=== PATIENT | female | born 1985 | race Caucasian/White ===

== ENCOUNTER → 2021-12-04 13:54 | Outpatient (CLI) | payer OTHER, SELFPAY ==
--- NOTE | 2021-12-04 13:58 | DI.US.S_ITS ---
PROCEDURE: US OB >= 14 WEEKS FETUS INDICATIONS: 20 week ANATOMY SCAN OUTSIDE/PRIOR DATING DATA: Last menstrual period (LMP): July 17, 2021. LMP-based estimated date of delivery (LAM): April 23, 2022. First dating scan (date): November 13, 2021. Estimated date of delivery (LAM) from first dating scan: April 22, 2022. TECHNIQUE: Real-time scanning was performed of the fetus, with image documentation and biometric measurements. COMPARISON: [facility], , OB >= 14 WEEKS FETUS, 11/26/2021, 13:41. FINDINGS: General: A single living intrauterine gestation is present. Presentation: Variable. Placenta: Placental position is anterior , without previa. Amniotic fluid index: 16 cm, normal range is 5-24 cm. Single deepest vertical pocket is 4.6 cm. heart rate: 139 beats per minute. Maternal cervical canal: 4.3 cm long. Normal lower limit is 2.5 cm. biometrics: Biparietal diameter: 5 cm Head circumference: 18.3 cm Abdominal circumference: 15.4 cm Femur length: 3.4 cm Clinically estimated gestational age: 20 weeks, 1 day Composite gestational age from present scan: 20 weeks, 5 days Estimated weight and percentile: 363 g; 70 Anatomic survey: Neuro: Ventricles are non-dilated at less than 10 mm. Cisterna magna is normal at 3-11 mm. Cerebellum is normal in size and morphology. Nuchal skin fold: Normal at less than 6 mm between 14-21 weeks gestational age. Face: Nose and lips, facial profile are normal. Spine: No evidence for spina bifida. Heart: 4-chambered heart is present, with normal ventricular outflow tracts. Diaphragm: Diaphragm is intact. Stomach: Left-sided stomach is present. Kidneys: No hydronephrosis. Normal is less than 5 mm in 2nd trimester, less than 7 mm in 3rd trimester. Cord: Cord insertion not well seen. Bladder: Normal in size. Extremities: All 4 extremities identified. IMPRESSION: Live single intrauterine gestation as detailed above. We strive to produce accurate, complete, and clear reports of imaging services. To assist us in improving patient care, this report was composed using standard report templates and voice recognition software. Therefore, it may contain abnormal punctuation, insertions and/or omissions. Occasional wrong-word or sound-alike substitutions may occur. Though we review the report and make efforts to correct it, we do recommend that the report be read carefully in proper context to recognize any text inaccuracies. Dictated by: Won Ernst M.D. on 12/04/2021 at 15:30 Approved by: Won Ernst M.D. on 12/04/2021 at 15:32
== END ==
PROVIDERS: Referring Provider Obstetrics & Gynecology; Visit Provider Obstetrics & Gynecology
DX: Z34.82 Encounter for supervision of other normal pregnancy, second trimester (principal); Z3A.20 20 weeks gestation of pregnancy
CPT/HCPCS: 76811

== ENCOUNTER → 2022-01-14 11:07 | Outpatient (CLI) | payer OTHER, SELFPAY ==
[2022-01-14 14:01] LABS: Hematocrit 35.8 % (36-46)
[2022-01-14 14:12] LABS: GTT (PREG) 1 Hour PP 50gm Dose 129 mg/dL (76-139)
== END ==
PROVIDERS: Referring Provider Obstetrics & Gynecology; Visit Provider Obstetrics & Gynecology
DX: Z34.82 Encounter for supervision of other normal pregnancy, second trimester (principal); Z3A.25 25 weeks gestation of pregnancy
CPT/HCPCS: 36415; 82950; 85014; 85018; 86850; 86900; 86901

== ENCOUNTER 2022-03-04 16:36 | Outpatient (CLI) | payer OTHER, SELFPAY ==
[2022-03-04 17:28] VITALS: BP 117/69; PULSE 79; RESP 20; TEMP 36.3
== END 2022-03-04 17:20 | disposition home or self-care (01) ==
LOC: OB 03-05 08:05
PROVIDERS: Referring Provider Obstetrics & Gynecology; Visit Provider Obstetrics & Gynecology
DX: O47.03 False labor before 37 completed weeks of gestation, third trimester (principal); Z3A.32 32 weeks gestation of pregnancy
CPT/HCPCS: 59025; G0378; G0379

== ENCOUNTER → 2022-04-02 12:16 | Outpatient (CLI) | payer OTHER, SELFPAY ==
[2022-04-03 09:58] LABS: Strep Grp B PCR NEG for Grp B Strep
== END ==
PROVIDERS: Visit Provider Obstetrics & Gynecology
DX: Z34.83 Encounter for supervision of other normal pregnancy, third trimester (principal); Z3A.37 37 weeks gestation of pregnancy
CPT/HCPCS: 87653

== ENCOUNTER 2022-04-02 15:05 | Outpatient (CLI) | payer OTHER, SELFPAY ==
[2022-04-02 16:57] VITALS: BP 96/51; PULSE 88; RESP 20; TEMP 36.7
--- NOTE | 2022-04-02 18:03 | P.TNLD_ITS ---
Visit Information Visit Information Date of evaluation: 04/02/22 Primary OB Provider: Piedad Dejesus Reason for Evaluation: Yes non-stress test non-stress test reason: other (h/o stillbirth, Covid in ) Vital Signs Vital Signs: Vital Signs - 8 hr 04/02/22 16:57 Temperature 98.1 F Pulse Rate 88 Respiratory Rate 20 Blood Pressure 96/51 L PFSH Medical History (Updated 02/12/22 @ 08:30 by Piedad Dejesus MD) Advanced maternal age (AMA) in Anxiety (~10/11/20) Chicken pox Heavy menstrual period IBS (irritable bowel syndrome) (~1987) Migraines Painful menstrual periods Surgical History (Updated 11/25/21 @ 20:39 by Katarina Douglass) [place] teeth extracted (~2005) Family History (Updated 11/25/21 @ 20:42 by Katarina Douglass) Mother Miscarriage Migraine Father Prostate cancer Hyperlipidemia Hypertension TIA (transient ischemic attack) Grandmother Parkinson's disease Grandfather Lung cancer Grandmother Cancer Grandfather S/P triple vessel bypass Hyperlipidemia Brother Hypertension Hyperlipidemia Brother Suicide Social History marital status: number of children: 1 household members: spouse, family and children lives independently: Yes caregiver/support person: No housing: house pets and animals: No education level: master's degree occupational status: unemployed current occupational exposures/hazards: No 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 seatbelt use: always do you feel safe at home: Yes Smoking Status: Never smoker second hand exposure: No alcohol intake: never substance use type: does not use during the past year weight has: remained stable well-balanced diet: daily or most days daily servings fruits/ve-4 caffeine: No Type(s) of exercise: walking and normal ROM and activity frequency: daily Exam Vital Signs (past 8 hours): - 04/02/22 16:57 Temperature 98.1 F Pulse Rate 88 Respiratory Rate 20 Blood Pressure 96/51 L Evaluation Evaluation Baseline heart rate: 130 Variability: Moderate (11-25) monitor accelerations: Present Monitor Decelerations: Absent Contraction Frequency (minutes): 10 Uterine Contraction Intensity: Mild Diagnosis, Plan/Disposition Plan/Disposition Plan: Assessment: 37 wks gestation h/o stillbirth Reactive NST Plan: S/S labor reviewed OB Disposition: home
== END 2022-04-02 16:00 | disposition home or self-care (01) ==
LOC: LABOR 15:10 → OB 04-03 10:35
PROVIDERS: Referring Provider Obstetrics & Gynecology; Visit Provider Obstetrics & Gynecology
DX: O09.293 Supervision of pregnancy with other poor reproductive or obstetric history, third trimester (principal); Z3A.37 37 weeks gestation of pregnancy; Z86.16 Personal history of COVID-19
CPT/HCPCS: 59025; 87653; G0378; G0379

== ENCOUNTER 2022-04-07 09:20 | Inpatient (IN) | payer OTHER, SELFPAY ==
[2022-04-07 10:36] VITALS: BP 116/74
--- NOTE | 2022-04-07 11:10 | PM.OBHP.1 ---
OB HPI Date/Time Date of admission: 04/07/22 Date Patient Seen: 04/07/22 Time Patient Seen: 11:11 History of Present Condition Chief complaint: Active labor : 3 Para: 1 Estimated Date of Delivery: 04/23/22 Estimated Gestational Age (weeks): 37 Narrative: Megan Mitchell is a 36 year old female admitted in active labor History of Present care: good care, initiated at week # (12), number of visits (11) and pounds weight gain (41) Dating criteria: LMP confirmed by 1st trimester US Ultrasounds: normal mid trimester US Obstetrical complications: none Medical complications: none Preadmission Labs Blood type: O (+) positive -: Antibody screen: negative, GBS status: negative, HBsAG: negative, HIV: negative and RPR/VDLR: negative -: Chlamydia screen: not detected and Gonorrhea screen: not detected -: Rubella: immune and Varicella: immune HCAB: negative Cell-free DNA: Normal female 1 hr GTT: 129 Prior (ies) History: 05/25/19 39 13 7 lb 8 oz [place] tongue/lip tie,mstitis chorioamnionitis/endometrKillian 01/08/21 20.5 7.549 oz still [place], [place] oligohydramnios intrauterine Evaluation Evaluation Baseline heart rate: 130 Variability: Moderate (11-25) monitor accelerations: Present Monitor Decelerations: Absent Contraction Frequency (minutes): 4 Uterine Contraction Intensity: Strong/Firm Category of Tracing: Reactive Status: Category l Dilation (cm): 6 Effacement (%): 60 station: -2 Position of cervix: mid Consistency: soft PFSH Medical History (Updated 02/12/22 @ 08:30 by Piedad Dejesus MD) Advanced maternal age (AMA) in Anxiety (~10/11/20) Chicken pox Heavy menstrual period IBS (irritable bowel syndrome) (~1987) Migraines Painful menstrual periods Surgical History (Updated 11/25/21 @ 20:39 by Katarina Douglass) [place] teeth extracted (~2005) Family History (Updated 11/25/21 @ 20:42 by Katarina Douglass) Mother Miscarriage Migraine Father Prostate cancer Hyperlipidemia Hypertension TIA (transient ischemic attack) Grandmother Parkinson's disease Grandfather Lung cancer Grandmother Cancer Grandfather S/P triple vessel bypass Hyperlipidemia Brother Hypertension Hyperlipidemia Brother Suicide Social History marital status: number of children: 1 household members: spouse, family and children lives independently: Yes caregiver/support person: No housing: house pets and animals: No education level: master's degree occupational status: unemployed current occupational exposures/hazards: No 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 seatbelt use: always do you feel safe at home: Yes Smoking Status: Never smoker second hand exposure: No alcohol intake: never substance use type: does not use during the past year weight has: remained stable well-balanced diet: daily or most days daily servings fruits/ve-4 caffeine: No Type(s) of exercise: walking and normal ROM and activity frequency: daily Meds Home Medications and Allergies Home Medications Medication Instructions Recorded Confirmed Type docusate sodium 100 mg capsule 100 mg PO BID 11/08/21 04/07/22 History (Colace) doxylamine succinate 25 mg tablet 25 mg PO BEDTIME PRN Sleep 11/08/21 04/07/22 History (Unisom (doxylamine)) prenat.vits,mark anthony,[id number] 1 tab PO DAILY 11/08/21 04/07/22 History fluoxetine 20 mg capsule (Prozac) 20 mg PO DAILY #30 caps 03/06/22 04/07/22 Rx Allergies Allergy/AdvReac Type Severity Reaction Status Date / Time No Known Drug Allergies Allergy Verified 04/02/22 11:07 Review of Systems Review of Systems Narrative: Patient began contractions approximately 6:30 a.m.. No leakage of fluid. Good movement yesterday. No headaches, scotomata, epigastric pain. OB Exam Narrative Exam Narrative: Blood pressure 115/83, pulse of 80, temperature 36.3? HEENT exam within normal limits. Lungs are clear to auscultation percussion. Heart is regular rate and rhythm no S3-S4 murmurs. Abdomen is gravid. Fetus is vertex. Extremities without edema and nontender. Assessment and Plan Assessment and Plan Assessment and Plan narrative: 36-year-old 3 para 1 early demise 1, at 37 week 5 days in active labor. Patient received an epidural catheter for pain control. Anticipate spontaneous vaginal delivery. Time Spent with Patient Total time spent with greater than 50% in coordination of care (as documented) at patient's floor/unit and/or counseling patient:: less than 15 minutes
[2022-04-07] MEDS: LACTATED RINGERS 1,000 ML 100 ML IV (11:30)
[2022-04-07 11:47] LABS: Add Manual Diff / Slide Review NO; Basophils Absolute Auto 0 /uL (0-100); Basophils Percent Auto 0.3 % (0-2); Eosinophils Absolute Auto 100 /uL (0-450); Hematocrit 36.6 % (36-46); Hemoglobin 12.6 g/dL (12.0-16.0); Lymphocytes Absolute Auto 2400 /uL (1100-4500); Lymphocytes Percent Auto 18.2 % (25-40); Mean Corpuscular HGB Conc 34.4 % (30-36); Mean Corpuscular Hemoglobin 32.4 PG (26-34); Mean Corpuscular Volume 94.2 fL (80-100); Monocytes Absolute Auto 700 /uL (0-900); Monocytes Percent Auto 5.6 % (3-14); Neutrophils Absolute Auto 9700 /uL (1500-7000); Neutrophils Percent Auto 74.9 % (50-75); Platelet Count 184 X10^3/uL (150-400); Red Blood Cell Count 3.88 X10^6/uL (4.0-5.2); Red Cell Distribution Width 13.7 % (11.6-14.8)
[2022-04-07] MEDS: CALCIUM CARBONATE 500 MG TAB 1000 MG PO (11:54)
[2022-04-07 12:55] LABS: COVID19 -Nasal RAPID Negative (Negative)
--- NOTE | 2022-04-07 15:15 | PM.OBPRVD ---
Events: Meconium Stained Fluid (Moderate) Labor & Delivery Delivery date: 04/07/22 Cervical ripening method: none Induction method: none Delivery monitor: external FHT and external uterine Route of delivery: Episiotomy description: None L&D Laceration Description: Perineal - 2nd Degree, Vaginal - 2nd Degree and Superficial (Right periurethral) Delivery repair: vicryl and chromic Estimated blood loss (mL): 250 Anesthesia Type: Epidural Complications: None Narrative: Patient complete and pushed with 1 contraction. At 2:48 p.m., a live female infant delivered spontaneously over an intact perineum. No nuchal cord. The remainder of the body delivered without difficulty. The cord was double clamped and cut. The was handed to waiting RT and Peds. Cord bloods were obtained. Pitocin was given in the IV fluids. The placenta delivered intact with a three-vessel cord at 2:51 p.m.. The fundus was massaged to firm. A superficial right periurethral laceration was repaired with 4-0 chromic in the usual fashion. Hemostasis was achieved. A second-degree vaginal/perineal laceration was repaired with 2 0 Vicryl and 3-0 chromic in the usual fashion. Hemostasis was achieved. Estimated blood loss 250 cc. Apgars 8 at 1 minute and 9 at 5 minutes. Epidural analgesia. . Mom and infant stable to recovery. [place] Baby 1: gender: Female Presentation: vertex Position: Right Occiput Anterior Placenta delivery description: Spontaneous Cord Vessel Description: 3 Vessels and Clamped/Cut score (1 min): 8 score (5 min): 9 weight: 6 lb 11 oz Plan for aftercare: Routine care
[2022-04-07] MEDS: IBUPROFEN 600 MG TABLET PO (20:56)
[2022-04-08] MEDS: ACETAMINOPHEN 325 MG TABLET 650 MG PO (08:20)
[2022-04-08] MEDS: DOCUSATE 100 MG CAPSULE PO (08:21)
[2022-04-08] MEDS: PRENATAL VIT,CALC/IRON/FOLIC 1 TABLET 1 TAB PO (08:21)
[2022-04-08] MEDS: IBUPROFEN 600 MG TABLET PO ×2 (08:21→14:45)
[2022-04-08] MEDS: FLUoxetine 20 MG CAPSULE PO (08:28)
--- NOTE | 2022-04-08 10:17 | P.DS_ITS ---
Discharge Providers Provider Date of admission: 04/07/22 09:20 Discharge Date: 04/08/22 Primary care physician: Doctor Brandon MD Consults: 04/07/22 11:28 Consult to Anesthesiology Urgent Comment: Consulting Provider: Anesthesiologist Reason for consultation: Epidural Has provider been notified: Yes 04/08/22 15:13 Consult to Picture Enlarger Routine Comment: Discharge provider: Piedad Dejesus MD Summary Hospital Course Date Patient Seen: 04/08/22 Time Patient Seen: 10:17 Diagnoses: 37-,5/7 weeks gestation Spontaneous vaginal delivery Right superficial periurethral laceration Second-degree vaginal/perineal laceration Moderate meconium-stained amniotic fluid Hospital Course: Patient is a 36-year-old 3 para 2 who presented on April 07, 2022 in active labor. She received an epidural for pain management. She had a spontaneous rupture of membranes with moderate meconium-stained amniotic fluid. She had a spontaneous vaginal delivery without complication. She had a right periurethral tear and a second-degree vaginal/perineal tear that were repaired in the usual fashion. Her course was unremarkable. She is discharged home on day # 1. She has had difficulty sleeping in the period. Hydroxyzine was prescribed for anxiety/insomnia. Peripartum Data Infant Delivery Method: Natural Vaginal Laceration Description: Perineal - 2nd Degree, Vaginal - 2nd Degree and Superficial (Right periurethral) Episiotomy description: None Procedures: Epidural analgesia Spontaneous rupture of membranes Spontaneous vaginal delivery Periurethral and second-degree vaginal/perineal laceration repair complications: none [place] 1: Gender: Female Disposition of : home Status at Discharge Cognitive/behavioral status at discharge: oriented Functional status at discharge: independent ambulation Overall status at discharge: patient is progressing back to baseline Time Spent with Patient Time attestation: Total time spent providing and/or coordinating discharge services: Time spent: Less than 30 minutes Objective Labs Result Diagrams: 04/07/22 10:15 Labs: Laboratory Results - last 24 hr 04/07/22 04/07/22 04/07/22 10:05 10:15 10:15 WBC 13.0 H RBC 3.88 L Hgb 12.6 Hct 36.6 MCV 94.2 MCH 32.4 MCHC 34.4 RDW 13.7 Plt Count 184 Neut % (Auto) 74.9 Lymph % (Auto) 18.2 L Anderson % (Auto) 5.6 Eos % (Auto) 1.0 L Baso % (Auto) 0.3 Neut # (Auto) 9700 H Lymph # (Auto) 2400 Anderson # (Auto) 700 Eos # (Auto) 100 Baso # (Auto) 0 SARS-CoV-2 (PCR) Negative Blood Type O Positive Antibody Screen Negative Exam Vital Signs (past 8 hours): Generally: Patient is sitting up in bed, no acute distress Fundus: Firm at U -2 Extremities: No edema, negative Homans Discharge Plan Discharge Plan Patient Disposition: Home Provider Discharge Comment: Call with fever, chills, or bleeding vaginally more than a pad in an hour Ibuprofen 600 mg every 6 hours as needed for cramping Tylenol 650 mg every 6 hours as needed Discharge orders & Medications Prescriptions: New hydroxyzine HCl 25 mg tablet 25 mg PO BEDTIME PRN (Reason: anxiety and insomnia) Qty: 30 3RF Continued docusate sodium [Colace] 100 mg capsule 100 mg PO BID prenat.vits,mark anthony,[id number]-copri Tablet 1 tab PO DAILY fluoxetine [Prozac] 20 mg capsule 20 mg PO DAILY Qty: 30 11RF Discontinued Unisom (doxylamine) 25 mg tablet 25 mg PO BEDTIME PRN (Reason: Sleep) Follow up/Referrals: Piedad Dejesus MD [Physician] - 6 Weeks Diet/Activity/Treatments Diet: Regular Activity: Nothing in the vagina for 6 weeks Skin/Wound/Dressing Care Report to your healthcare provider any signs of infection, such as:: chills, fever, increased pain and unusual drainage Discharge Data Primary Care Provider: Miscellaneous,Doctor
--- NOTE | 2022-04-08 12:13 | PM.OBPNLAB ---
Date/Time Date Patient Seen: 04/08/22 Time Patient Seen: 11:50 Pain Control Pain control: tolerating well Pelvic Exam Dilation (cm): 4 Effacement (%): 75 station: -2 Amniotic membrane status: Intact Contractions Contractions on admission: none Monitor mode: External Pitocin rate (mU/min): 3 Contraction frequency (min): 3 Contraction duration (min): 1 Contraction pattern: Regular Contraction intensity: Moderate Status status: Category l Heart Rate Baseline: 150 Monitor Accelerations: Present Monitor Decelerations: Absent Monitor Variability: Moderate Assessment and Plan Assessment: induction ongoing Comments: AROM with copious clear amniotic fluid Epidural
--- NOTE | 2022-04-08 13:16 | PM.OBPNLAB ---
Date/Time Date Patient Seen: 04/08/22 Time Patient Seen: 12:55 Pain Control Pain control: epidural Pelvic Exam Dilation (cm): 5 Effacement (%): 75 station: -1 Amniotic membrane status: Ruptured Contractions Contractions on admission: none Monitor mode: External Pitocin rate (mU/min): 0 Contraction frequency (min): 3 Contraction duration (min): 1 Contraction pattern: Regular Contraction intensity: Strong/Firm Status status: Category l Heart Rate Baseline: 145 Monitor Accelerations: Present Monitor Decelerations: Late (X2) Monitor Variability: Moderate Assessment and Plan Assessment: induction ongoing Comments: Left side, due to feeling things on the left Restart Pitocin
[2022-04-08 15:59] VITALS: BP 105/75; PULSE 62; RESP 15; TEMP 37
== END 2022-04-08 17:10 | disposition home or self-care (01) | DRG 807 ==
PROVIDERS: Specialist; Admitting Provider Obstetrics & Gynecology; Referring Provider Obstetrics & Gynecology; Visit Provider Obstetrics & Gynecology
DX: O99.824 Streptococcus B carrier state complicating childbirth (principal); Z37.0 Single live birth; O70.1 Second degree perineal laceration during delivery; O71.82 Other specified trauma to perineum and vulva; Z3A.37 37 weeks gestation of pregnancy; O77.0 Labor and delivery complicated by meconium in amniotic fluid; O69.81X0 Labor and delivery complicated by cord around neck, without compression, not applicable or unspecified; Z20.822 Contact with and (suspected) exposure to COVID-19
CPT/HCPCS: 01967; 36415; 59050; 59400; 85025; 86850; 86900; 86901; 87635; C9803; G0379

== ENCOUNTER → 2022-09-30 09:04 | Outpatient (CLI) | payer OTHER, SELFPAY ==
[2022-09-30 09:28] LABS: Add Manual Diff / Slide Review NO; Basophils Absolute Auto 0 /uL (0-100); Basophils Percent Auto 0.3 % (0-2); Eosinophils Absolute Auto 200 /uL (0-450); Eosinophils Percent Auto 4.3 % (2-4); Hematocrit 40.7 % (36-46); Hemoglobin 13.5 g/dL (12.0-16.0); Lymphocytes Absolute Auto 1600 /uL (1100-4500); Lymphocytes Percent Auto 27.7 % (25-40); Mean Corpuscular HGB Conc 33.1 % (30-36); Mean Corpuscular Hemoglobin 29.5 PG (26-34); Mean Corpuscular Volume 88.9 fL (80-100); Monocytes Absolute Auto 400 /uL (0-900); Monocytes Percent Auto 6.8 % (3-14); Neutrophils Absolute Auto 3500 /uL (1500-7000); Neutrophils Percent Auto 60.9 % (50-75); Platelet Count 182 X10^3/uL (150-400); Red Blood Cell Count 4.57 X10^6/uL (4.0-5.2); White Blood Cell Count 5.8 X10^3/uL (4.5-11.0)
[2022-09-30 11:45] LABS: Alanine Aminotransferase 25 IU/L (<35); Albumin Globulin Ratio 1.5 (1.0-2.8); Alkaline Phosphatase 130 U/L (38-126); Aspartate Aminotransferase 25 IU/L (14-36); BUN Creatinine Ratio 14.4 (6-22); Bilirubin Total 0.2 mg/dL (0.2-1.3); Blood Urea Nitrogen 16 mg/dL (7-17); Carbon Dioxide 28 mmol/L (22-32); Chloride 102 mmol/L (98-107); Estimated Glomerular Filt Rate > 60 mL/min (>60); Globulin 2.6 g/dL (1.7-4.1); Glucose 87 mg/dL (70-100); HEMOLYSIS < 15 (0-50); Magnesium 1.6 mg/dL (1.6-2.3); Potassium 3.5 mmol/L (3.4-5.1); Sodium 141 mmol/L (137-145); Total Protein 6.6 g/dL (6.3-8.2)
[2022-09-30 11:59] LABS: Vitamin D 25 Hydroxy (D3) 43.6 ng/mL (30.0-100.0)
[2022-09-30 12:18] LABS: Ferritin 105 ng/mL (6-137)
[2022-10-01 17:52] LABS: Free T3, Triiodothyronine Free 2.79 pg/mL (2.77-5.27); Free T4, Direct Thyroxine 1.09 ng/dL (0.78-2.19)
[2022-10-01 18:05] LABS: Thyroid Stimulating Hormone 1.38 uIU/mL (0.47-4.68)
== END ==
PROVIDERS: PCP Family Medicine; Referring Provider Family Medicine; Visit Provider Family Medicine
DX: D64.9 Anemia, unspecified (principal); G43.901 Migraine, unspecified, not intractable, with status migrainosus; R53.83 Other fatigue; Z13.220 Encounter for screening for lipoid disorders; Z13.21 Encounter for screening for nutritional disorder; F41.9 Anxiety disorder, unspecified; F53.0 Postpartum depression
CPT/HCPCS: 36415; 80053; 82306; 82728; 83735; 84439; 84443; 84481; 85025

== ENCOUNTER → 2023-10-09 17:18 | Outpatient (CLI) | payer OTHER, SELFPAY ==
[2023-10-09 19:34] LABS: COVID-19 CEPHEID 4-PLEX PCR Negative (Negative); Influenza A - CEPHEID Flu A NEGATIVE (NEGATIVE); Influenza B - CEPHEID Flu B NEGATIVE (NEGATIVE); Respiratory Syncytial Virus Negative (Negative)
== END ==
PROVIDERS: PCP Family Medicine; Visit Provider Nurse Practitioner Family
DX: R11.0 Nausea (principal); R11.10 Vomiting, unspecified; R52 Pain, unspecified; R11.2 Nausea with vomiting, unspecified; R50.9 Fever, unspecified
CPT/HCPCS: 0241U; 87077; 87086; 87147